=== PATIENT | male | born 1980 | race American Indian/Alaskan Native ===

== ENCOUNTER 2017-03-25 11:04 | Inpatient (IN) | payer BC ==
[2017-03-25 12:59] VITALS: BMI 33.0
[2017-03-25 14:37] VITALS: RESP 20
--- NOTE | 2017-03-25 14:41 | CP.PCM.HP ---
History of Present Illness - History of Present Illness History of Present Illness: 36 yo male with no significant PMH brought in TCU for PT/OT after having left THR at [facility]. Initial surgery was on 03/19/2017 but surgery was complicated with dislocation of the prosthesis. A revision was later done on . Present on Admission - Present on Admission Any Indicators Present on Admission: No History of DVT/PE: No History of Uncontrolled Diabetes: No Urinary Catheter: No Decubitus Ulcer Present: No Review of Systems - Review of Systems All systems: reviewed and no additional remarkable complaints except (aside from those mentioned above, 12 point system review were negative by me) Past Patient History - Tetanus Immunizations Tetanus Immunization: Unknown - Past Medical History & Family History Past Medical History?: No Past Family History: Reviewed and not pertinent - Past Social History Smoking Status: Never Smoked Chewing Tobacco Use: No Cigar Use: No Alcohol: Social Drugs: Denies - CARDIAC Hx Cardiac Disorders: No - PULMONARY Hx Respiratory Disorders: No - NEUROLOGICAL Hx Neurological Disorder: No - HEENT Hx HEENT Problems: No - RENAL Hx Chronic Kidney Disease: No - ENDOCRINE/METABOLIC Hx Endocrine Disorders: No - HEMATOLOGICAL/ONCOLOGICAL Hx Blood Disorders: No - INTEGUMENTARY Hx Dermatological Problems: No - MUSCULOSKELETAL/RHEUMATOLOGICAL Hx Musculoskeletal Disorders: No - GASTROINTESTINAL Hx Gastrointestinal Disorders: No - GENITOURINARY/GYNECOLOGICAL Hx Genitourinary Disorders: No - PSYCHIATRIC Hx Psychophysiologic Disorder: No - SURGICAL HISTORY Hx Orthopedic Surgery: Yes (left THR) - ANESTHESIA Hx Anesthesia: Yes Hx Anesthesia Reactions: No Meds Allergies/Adverse Reactions: Allergies Allergy/AdvReac Type Severity Reaction Status Date / Time No Known Allergies Allergy Verified 03/25/17 14:12 Physical Exam - Constitutional Appears: No Acute Distress - Head Exam Head Exam: ATRAUMATIC - Eye Exam Eye Exam: absent: Scleral icterus - ENT Exam ENT Exam: Mucous Membranes Moist - Neck Exam Neck exam: Negative for: Meningismus - Respiratory Exam Respiratory Exam: absent: Rhonchi, Wheezes, Respiratory Distress - Cardiovascular Exam Cardiovascular Exam: REGULAR RHYTHM, +S1, +S2 - GI/Abdominal Exam GI & Abdominal Exam: Soft. absent: Tenderness - Rectal Exam Rectal Exam: Deferred - Extremities Exam Extremities exam: Negative for: full ROM (left hip with some limitation because of pain post THR) - Back Exam Back exam: NORMAL INSPECTION - Neurological Exam Neurological exam: Alert, Oriented x3 - Psychiatric Exam Psychiatric exam: Normal Affect - Skin Skin Exam: Dry, Intact Assessment & Plan (1) Status post total hip replacement, left Status: Acute Comment: refer to PT/OT for evaluation and management. physiatry consult with Dr Gupta. pain management (2) Anemia Status: Acute Comment: secondary to blood loss from surgery. continue iron supplement
[2017-03-25] MEDS ORDERED: Oxycodone/Acetaminophen 5/325 mg Tab PO PRN (14:57)
[2017-03-25] MEDS ORDERED: oxyCODONE 10 mg ER Tab (oxyCONTIN) PO PRN (14:57)
[2017-03-25] MEDS: Alum-Mag Hydrox-Simethicone Susp (30 mL) PO PRN (21:11)
[2017-03-26 06:53] LABS: HEMATOCRIT 26.2 % (35.0-51.0); MEAN CELL VOLUME 85.7 fl (80.0-94.0); MEAN CORPUSCULAR HEMOGLOBIN 28.2 pg (27.0-31.0); RED CELL DISTRIBUTION WIDTH 13.7 % (11.5-14.5); WHITE BLOOD COUNT 6.4 K/uL (4.8-10.8)
[2017-03-26 06:59] LABS: BLOOD UREA NITROGEN 13 mg/dl (9-20); CALCIUM 8.9 mg/dL (8.4-10.2); CARBON DIOXIDE 30 mmol/L (22-30); CHLORIDE 101 mmol/L (98-107); GFR AFRICAN-AMERICAN > 60; GLUCOSE,RANDOM 100 mg/dL (75-110); SODIUM 138 mmol/l (132-148)
[2017-03-26] MEDS: Pantoprazole 40 mg EC Tab PO SCH (09:30)
--- NOTE | 2017-03-26 11:52 | CP.PCM.CON ---
History of Present Illness - History of Present Illness History of Present Illness: daniel is a 36 year male with revision of left tip replacement now for transitional care unit rehab Review of Systems - Constitutional Constitutional: Fatigue - Musculoskeletal Musculoskeletal: Abnormal Gait, Muscle Weakness Past Patient History - Tetanus Immunizations Tetanus Immunization: Unknown - Past Medical History & Family History Past Medical History?: No - Past Social History Smoking Status: Never Smoked - CARDIAC Hx Cardiac Disorders: No - PULMONARY Hx Respiratory Disorders: No - NEUROLOGICAL Hx Neurological Disorder: No - HEENT Hx HEENT Problems: No - RENAL Hx Chronic Kidney Disease: No - ENDOCRINE/METABOLIC Hx Endocrine Disorders: No - HEMATOLOGICAL/ONCOLOGICAL Hx Blood Disorders: No Hx AIDS: No Hx Human Immunodeficiency Virus (HIV): No - INTEGUMENTARY Hx Dermatological Problems: No - MUSCULOSKELETAL/RHEUMATOLOGICAL Hx Musculoskeletal Disorders: No Hx Falls: Yes Hx Fractures: Yes Hx Osteoarthritis: Yes Other/Comment: left total hip replacement on 03/22/17,. left hip congenital hip dysplasia. sport injury - GASTROINTESTINAL Hx Gastrointestinal Disorders: No - GENITOURINARY/GYNECOLOGICAL Hx Genitourinary Disorders: No - PSYCHIATRIC Hx Psychophysiologic Disorder: No Hx Substance Use: No - SURGICAL HISTORY Hx Orthopedic Surgery: Yes (left THR) - ANESTHESIA Hx Anesthesia: Yes Hx Anesthesia Reactions: No Meds Allergies/Adverse Reactions: Allergies Allergy/AdvReac Type Severity Reaction Status Date / Time No Known Allergies Allergy Verified 03/25/17 14:12 - Medications Medications: Current Medications Acetaminophen (Tylenol 325mg Tab) 650 mg PO Q6 PRN PRN Reason: Temperature Al Hydrox/Mg Hydrox/Simethicone (Maalox Plus 30 Ml) 30 ml PO Q4 PRN PRN Reason: Indigestion / Heartburn Last Admin: 03/25/17 21:11 Dose: 30 ml Aspirin (Aspirin) 325 mg PO Q12 [facility] Last Admin: 03/26/17 09:30 Dose: 325 mg Celecoxib (Celebrex) 200 mg PO Q12 [facility] Last Admin: 03/26/17 09:30 Dose: 200 mg Docusate Sodium (Colace) 100 mg PO BID [facility] Last Admin: 03/26/17 09:30 Dose: 100 mg Ferrous Sulfate (Feosol) 325 mg PO TID [facility] Last Admin: 03/26/17 09:30 Dose: 325 mg Oxycodone HCl (Oxycontin Extended Release Tab) 10 mg PO Q12 PRN PRN Reason: Pain, severe (8-10) Stop: 03/28/17 14:58 Oxycodone/Acetaminophen (Percocet 5/325 Mg Tab) 2 tab PO Q6 PRN PRN Reason: Pain, moderate (4-7) Stop: 03/28/17 14:58 Pantoprazole Sodium (Protonix Ec Tab) 40 mg PO DAILY [facility] Last Admin: 03/26/17 09:30 Dose: 40 mg Pregabalin (Lyrica) 25 mg PO TID [facility] Last Admin: 03/26/17 10:15 Dose: 25 mg Physical Exam - Head Exam Head Exam: ATRAUMATIC, NORMAL INSPECTION, NORMOCEPHALIC - Eye Exam Eye Exam: EOMI, Normal appearance, PERRL Pupil Exam: NORMAL ACCOMODATION, PERRL - ENT Exam ENT Exam: Mucous Membranes Moist, Normal Exam - Respiratory Exam Respiratory Exam: NORMAL BREATHING PATTERN - Cardiovascular Exam Cardiovascular Exam: REGULAR RHYTHM - GI/Abdominal Exam GI & Abdominal Exam: Hyperactive Bowel Sounds - Rectal Exam Rectal Exam: NORMAL INSPECTION - Exam External exam: NORMAL EXTERNAL EXAM - Back Exam Back exam: NORMAL INSPECTION - Neurological Exam Neurological exam: Alert, CN II-XII Intact - Psychiatric Exam Psychiatric exam: Normal Affect, Normal Mood - Skin Skin Exam: Dry, Intact, Normal Color - Additional Findings Additional findings: left leg weakness Results - Vital Signs Recent Vital Signs: Last Vital Signs Temp 98.1 F 03/26/17 08:38 Pulse 105 H 03/26/17 08:38 Resp 20 03/26/17 08:38 BP 128/80 03/26/17 08:38 Pulse Ox 97 03/26/17 08:38 - Labs Result Diagrams: 03/26/17 06:00 03/26/17 06:00 Labs: Laboratory Results - last 24 hr 03/26/17 03/26/17 06:00 06:00 WBC 6.4 RBC 3.06 L Hgb 8.6 L Hct 26.2 L MCV 85.7 MCH 28.2 MCHC 33.0 RDW 13.7 Plt Count 277 Sodium 138 Potassium 4.0 Chloride 101 Carbon Dioxide 30 Anion Gap 12 BUN 13 Creatinine 1.1 Est GFR ( Amer) > 60 Est GFR (Non-Af Amer) > 60 Random Glucose 100 Calcium 8.9 Assessment & Plan (1) Anemia Status: Acute (2) Status post total hip replacement, left Assessment and Plan: plan for physical, occupational and rec therapy for ROM, strengthening transfers and gait training Status: Acute
[2017-03-27] MEDS: Pantoprazole 40 mg EC Tab PO SCH (10:00)
[2017-03-27] MEDS: Alum-Mag Hydrox-Simethicone Susp (30 mL) PO PRN (10:00)
[2017-03-27 14:11] LABS: HEMATOCRIT 28.5 % (35.0-51.0); MEAN CELL VOLUME 85.9 fl (80.0-94.0); MEAN CORPUSCULAR HEMOGLOBIN 27.6 pg (27.0-31.0); MEAN CORPUSCULAR HGB CONC 32.1 g/dL (33.0-37.0); RED CELL DISTRIBUTION WIDTH 13.4 % (11.5-14.5); WHITE BLOOD COUNT 7.7 K/uL (4.8-10.8)
[2017-03-27 16:16] VITALS: BP 139/73; PULSE 94; TEMP 97.9; O2SAT 99
--- NOTE | 2017-03-27 18:25 | CP.PCM.DIS ---
Provider - Provider Date of Admission: 03/25/17 14:13 Attending physician: Tulio Hyde MD Time Spent in preparation of Discharge (in minutes): 20 Diagnosis - Discharge Diagnosis (1) Anemia Status: Acute (2) Status post total hip replacement, left Status: Acute Hospital Course - Lab Results Lab Results: Most Recent Lab Values WBC 7.7 K/uL (4.8-10.8) 03/27/17 13:50 RBC 3.32 Mil/uL (4.40-5.90) L 03/27/17 13:50 Hgb 9.1 g/dL (12.0-18.0) L 03/27/17 13:50 Hct 28.5 % (35.0-51.0) L 03/27/17 13:50 MCV 85.9 fl (80.0-94.0) 03/27/17 13:50 MCH 27.6 pg (27.0-31.0) 03/27/17 13:50 MCHC 32.1 g/dL (33.0-37.0) L 03/27/17 13:50 RDW 13.4 % (11.5-14.5) 03/27/17 13:50 Plt Count 351 K/uL (130-400) 03/27/17 13:50 Sodium 138 mmol/l (132-148) 03/26/17 06:00 Potassium 4.0 MMOL/L (3.6-5.0) 03/26/17 06:00 Chloride 101 mmol/L (98-107) 03/26/17 06:00 Carbon Dioxide 30 mmol/L (22-30) 03/26/17 06:00 Anion Gap 12 (10-20) 03/26/17 06:00 BUN 13 mg/dl (9-20) 03/26/17 06:00 Creatinine 1.1 mg/dL (0.8-1.5) 03/26/17 06:00 Est GFR ( Amer) > 60 03/26/17 06:00 Est GFR (Non-Af Amer) > 60 03/26/17 06:00 Random Glucose 100 mg/dL (75-110) 03/26/17 06:00 Calcium 8.9 mg/dL (8.4-10.2) 03/26/17 06:00 - Hospital Course Hospital Course: 36 yo male with no significant PMH brought in TCU for PT/OT after having left THR at [facility]. Initial surgery was on 03/19/2017 but surgery was complicated with dislocation of the prosthesis. A revision was later done on . Patient was seen by physiatry. Tolerated PT well. Anemia, taking iron supplements. H/H stable, HD stable. Patient stable to be dc home with home PT. Discharge Exam - Head Exam Head Exam: ATRAUMATIC, NORMAL INSPECTION, NORMOCEPHALIC - Eye Exam Eye Exam: EOMI, Normal appearance, PERRL Pupil Exam: NORMAL ACCOMODATION - ENT Exam ENT Exam: Mucous Membranes Moist, Normal Oropharynx - Respiratory Exam Respiratory Exam: Clear to PA & Lateral, NORMAL BREATHING PATTERN. absent: Rales, Rhonchi - Cardiovascular Exam Cardiovascular Exam: RRR, +S1, +S2. absent: Gallop, Rubs - GI/Abdominal Exam GI & Abdominal Exam: Normal Bowel Sounds, Soft. absent: Mass, Organomegaly, Tenderness - Extremities Exam Extremities exam: normal capillary refill, pedal pulses present - Back Exam Back exam: absent: CVA tenderness (L), CVA tenderness (R) - Neurological Exam Neurological exam: Alert, Oriented x3 - Psychiatric Exam Psychiatric exam: Normal Affect, Normal Mood - Skin Skin Exam: Dry, Warm Discharge Plan - Discharge Medications Prescriptions: Aspirin 325 mg PO Q12 #60 Celecoxib [celeBREX] 200 mg PO Q12 #60 Docusate [Colace] 100 mg PO BID #60 Ferrous Sulfate [Feosol] 325 mg PO TID #90 Oxycodone HCl [Oxycontin] 10 mg PO Q12 PRN #20 PRN Reason: Pain, Severe (8-10) oxyCODONE/Acetaminophen [Percocet 5/325 mg Tab] 2 tab PO Q6 PRN #20 PRN Reason: Pain, Moderate (4-7) Pantoprazole Sodium [Protonix] 40 mg PO DAILY #30 Pregabalin [Lyrica] 25 mg PO TID #90 - Follow Up Plan Condition: GOOD Disposition: HOME/ ROUTINE Instructions: Anemia (DC), Knee Replacement (DC) Additional Instructions: PATIENT TO BE DISCHARGED HOME IN STABLE CONDITION WITH HOME PT. RESUME ACTIVITY TOLERATED. RESUME DIET. MEDICATIONS PRESCRIBED. RETURN TO ANY ER IF CONDITION OR SYMPTOMS WORSEN. FOLLOW UP WITH PCP AND ORTHOPEDIC SURGERY WITHIN 7-10 DAYS. Referrals: Mario Alberto Isaacs MD [Staff Provider] -
== END 2017-03-27 20:10 | disposition home or self-care (01) | DRG 560 ==
LOC: H.TCU 14:13
PROC: F07Z9FZ Gait Training/Functional Ambulation Treatment using Assistive, Adaptive, Supportive or Protective Equipment (ICD-10-PCS; principal; 2017-03-25)
PROC: F07L6FZ Therapeutic Exercise Treatment of Musculoskeletal System - Lower Back / Lower Extremity using Assistive, Adaptive, Supportive or Protective Equipment (ICD-10-PCS; 2017-03-25)
PROC: F08Z4ZZ Home Management Treatment (ICD-10-PCS; 2017-03-25)
DX: Z47.1 Aftercare following joint replacement surgery (principal); D62 Acute posthemorrhagic anemia; Z96.642 Presence of left artificial hip joint